=== PATIENT | female | born 1970 | race African-American/Black ===

== ENCOUNTER 2016-08-19 09:14 | Emergency (ER) | payer MEDICAID ==
[~2016-08-19] VITALS: Ht 165.1 cm; Wt 109.0 kg
[2016-08-19 09:45] VITALS: BP 133/83
== END 2016-08-19 11:14 | disposition home or self-care (01) ==
LOC: ER 09:16
DX: B00.1 Herpesviral vesicular dermatitis (principal); Z98.890 Other specified postprocedural states
CPT/HCPCS: 99281

== ENCOUNTER 2018-05-04 08:32 | Emergency (ER) | payer MEDICAID ==
[~2018-05-04] VITALS: Ht 165.1 cm; Wt 102.0 kg
[2018-05-04 09:00] VITALS: BP 135/79
== END 2018-05-04 10:32 | disposition home or self-care (01) ==
LOC: ER 08:40
DX: R11.10 Vomiting, unspecified (principal); R52 Pain, unspecified; R05 Cough; R09.89 Other specified symptoms and signs involving the circulatory and respiratory systems; R68.83 Chills (without fever); Z98.890 Other specified postprocedural states
CPT/HCPCS: 99283

== ENCOUNTER 2019-05-31 18:01 | Emergency (ER) | payer MEDICAID ==
[~2019-05-31] VITALS: Ht 165.1 cm; Wt 103.0 kg
[2019-05-31] MEDS ORDERED: HYDROCODONE/ACETAMINOPHEN 5/325MG TABLET PO ONE (20:30)
[2019-05-31 21:16] VITALS: BP 136/79
== END 2019-05-31 21:18 | disposition home or self-care (01) ==
LOC: ER 18:01
DX: M79.89 Other specified soft tissue disorders (principal); Z98.890 Other specified postprocedural states
CPT/HCPCS: 99282; 99283

== ENCOUNTER 2019-10-25 01:46 | Emergency (ER) | payer MEDICAID ==
[~2019-10-25] VITALS: Ht 165.1 cm; Wt 99.8 kg
[2019-10-25] MEDS ORDERED: KETOROLAC 30MG/ML VIAL IV STA (02:12)
[2019-10-25] MEDS ORDERED: SODIUM CHLORIDE 0.9% 1,000 ML IV ONE (02:12)
[2019-10-25] MEDS ORDERED: ONDANSETRON HCL 4MG/2ML INJ IV STA (02:12)
[2019-10-25 02:40] LABS: CHLORIDE 108 mEq/L (98-107)
[2019-10-25 02:57] LABS: HCG SCREEN NEGATIVE
[2019-10-25 03:21] LABS: BASOPHILS % 0.4 % (0.0-2.0); EOSINOPHILS % 1.7 % (0.0-5.0); HEMATOCRIT. 37.5 % (36.0-48.0); HEMOGLOBIN. 12.4 g/dL (12.0-16.0); LYMPHOCYTES % 41.1 % (20.0-50.0); MEAN CORPUSCULAR HEMOGLOBIN 28.9 pg (28.0-32.0); MEAN CORPUSCULAR VOLUME 87.4 fL (81.0-99.0); MEAN PLATELET VOLUME 8.1 fl (7.4-10.4); MONOCYTES % 5.9 % (2.0-8.0); NEUTROPHILS % 50.9 % (40.0-76.0); PLATELET 276 x1000/uL (130-400); RED CELL DISTRIBUTION WIDTH 14.8 % (11.6-14.6)
[2019-10-25] MEDS ORDERED: DIPHENHYDRAMINE 50MG/ML VIAL IV ONE (03:45)
[2019-10-25] MEDS ORDERED: METOCLOPRAMIDE HCL 10MG/2ML VIAL IV ONE (03:45)
[2019-10-25] MEDS ORDERED: VISCOUS LIDOCAINE 2% 15 ML UDC PO STA (04:15)
[2019-10-25] MEDS ORDERED: MAGNESIUM/ALUMINUM HYDROXIDE/SIMETHICONE 30ML UDC PO STA (04:15)
[2019-10-25 04:31] VITALS: BP 129/78
== END 2019-10-25 04:32 | disposition home or self-care (01) ==
LOC: ER 01:46
DX: G43.909 Migraine, unspecified, not intractable, without status migrainosus (principal); Z98.890 Other specified postprocedural states
CPT/HCPCS: 36415; 70450; 80053; 83690; 84484; 84703; 85025; 93005; 96361; 96374; 96375; 99285; J1200; J1885; J2405; J2765; J7030

== ENCOUNTER 2022-07-23 08:47 | Emergency (ER) | payer MEDICAID, OTHER ==
[~2022-07-23] VITALS: Ht 162.6 cm; Wt 118.0 kg
[2022-07-23 08:49] VITALS: BP 168/106
[2022-07-23] MEDS ORDERED: CEPHALEXIN 250MG CAPSULE PO ONE (09:00)
[2022-07-23] MEDS ORDERED: CEPH500T MT (09:00)
== END 2022-07-23 09:45 | disposition home or self-care (01) ==
LOC: ER 08:47
DX: S40.862A Insect bite (nonvenomous) of left upper arm, initial encounter (principal); L03.114 Cellulitis of left upper limb; W57.XXXA Bitten or stung by nonvenomous insect and other nonvenomous arthropods, initial encounter; Y93.89 Activity, other specified; Y92.89 Other specified places as the place of occurrence of the external cause; Y99.8 Other external cause status; Z98.890 Other specified postprocedural states
CPT/HCPCS: 99283

== ENCOUNTER 2023-01-20 10:12 | Emergency (ER) | payer OTHER ==
[~2023-01-20] VITALS: Ht 165.1 cm; Wt 122.5 kg
[~2023-01-20 10:12] MED LIST: CEPH500T MT
[2023-01-20 10:18] VITALS: BP 150/86; PULSE 69; RESP 17; TEMP 98; O2SAT 98
[2023-01-20] MEDS ORDERED: GUAI-735 MT (11:10)
== END 2023-01-20 11:30 | disposition home or self-care (01) ==
LOC: ER 10:24
DX: R05.9 Cough, unspecified (principal); Z79.899 Other long term (current) drug therapy
CPT/HCPCS: 71046; 99283